=== PATIENT | male | born 2000 | race Caucasian/White ===

== ENCOUNTER 2019-06-08 12:48 | Emergency (ER) | payer OTHER ==
[2019-06-08 13:21] VITALS: BP 142/71
--- NOTE | 2019-06-08 13:25 | UC ---
Eye Complaint HPI - HPI Summary HPI Summary: Patient is a 18-year-old male presenting with upper respiratory symptoms x5 days and right eye redness and discharge times one day. Patient notes cold symptoms are improving. Patient states he thinks he may have pinkeye. Notes crusting of the eye this morning. Denies changes in vision. Denies contact lens use. Denies itching. Denies left eye symptoms. Denies fever and chills. - History of Current Complaint Stated Complaint: RT EYE COMPLAINT,CONGESTION,PARDO Hx Obtained From: Patient Pain Intensity: 0 - Allergies/Home Medications Allergies/Adverse Reactions: Allergies Allergy/AdvReac Type Severity Reaction Status Date / Time No Known Allergies Allergy Verified 06/08/19 13:21 PMH/Surg Hx/FS Hx/Imm Hx Previously Healthy: Yes - Surgical History Surgical History: None - Family History Known Family History: Positive: Unknown, Non-Contributory - Social History Alcohol Use: Weekly Substance Use Type: None Smoking Status (MU): Never Smoked Tobacco Review of Systems All Other Systems Reviewed And Are Negative: Yes Constitutional: Positive: Negative. Negative: Fever, Chills, Fatigue Eyes: Positive: Drainage, Eye Redness. Negative: Blurred Vision, Diplopia, Photophobia ENT: Positive: Nasal Discharge, Sinus Congestion. Negative: Sore Throat, Ear Ache, Sinus Pain/Tenderness Respiratory: Positive: Negative Cardiovascular: Positive: Negative Gastrointestinal: Positive: Negative Musculoskeletal: Positive: Negative Neurological: Positive: Negative Physical Exam Triage Information Reviewed: Yes Appearance: Well-Appearing, No Pain Distress, Well-Nourished Vital Signs: Initial Vital Signs Temp 98.1 F 06/08/19 13:19 Pulse 64 06/08/19 13:19 Resp 18 06/08/19 13:19 BP 142/71 06/08/19 13:19 Pulse Ox 98 06/08/19 13:19 Vital Signs Reviewed: Yes Eyes: Positive: Conjunctiva Inflamed - rt eye, Discharge - right eye, Other: - PERRLA. EOMI. ENT: Positive: Hearing grossly normal, Pharynx normal, Nasal congestion, Nasal drainage, TMs normal, Uvula midline. Negative: TM bulging, TM dull, TM red, Tonsillar swelling, Tonsillar exudate, Sinus tenderness Neck exam: Normal Neck: Positive: Supple, Nontender, No Lymphadenopathy Respiratory Exam: Normal Respiratory: Positive: Lungs clear, Normal breath sounds, No respiratory distress Cardiovascular Exam: Normal Cardiovascular: Positive: RRR Neurological: Positive: Alert Psychological: Positive: Age Appropriate Behavior Eye Complaint Course/Dx - Course Course Of Treatment: Discussed with patient that I am treating with Polytrim eyedrops for bacterial conjunctivitis. Informed him that he may continue to use [id number] cough and cold medications and that he may use Mucinex as well to help reduce mucous production. Instructed to follow-up with his [facility] or the [facility] if symptoms persist. Patient was understanding and agreed to treatment plan. - Differential Dx/Diagnosis Provider Diagnosis: Upper respiratory infection, Bacterial conjunctivitis of right eye Discharge ED - Sign-Out/Discharge Documenting (check all that apply): Patient Departure All imaging exams completed and their final reports reviewed: No Studies - Discharge Plan Condition: Stable Disposition: HOME Prescriptions: Polymyx/Trimethoprim OPTH* [Polytrim OPHTH*] 1 drop RIGHT EYE Q3H #1 btl Patient Education Materials: Upper Respiratory Infection (ED), Conjunctivitis ( ED) Referrals: [facility] [Outside] Additional Instructions: As discussed, use the antibiotic eye drops as prescribed for treatment of your pink eye. You may take Mucinex D to help reduce mucus production. You have to request this at the pharmacy. Or you may take regular mucinex over the counter. You may also use over the counter nasal spray for symptomatic relief. You may take ibuprofen as directed for pain relief. Get plenty of rest and fluids. Follow up with your [facility] or the [facility] clinic listed below if your symptoms worsen or do not resolve within a week. - Billing Disposition and Condition Condition: STABLE Disposition: Home - Attestation Statements Provider Attestation: I was available for consult. This patient was seen by the [facility]. The patient was not presented to, seen by, or examined by me. -Tonny
== END 2019-06-08 13:45 | disposition home or self-care (01) ==
LOC: UCCORT 12:48
DX: H10.9 Unspecified conjunctivitis (principal); J06.9 Acute upper respiratory infection, unspecified
CPT/HCPCS: 99201; G0463